=== PATIENT | male | born 1960 | race Caucasian/White ===

== ENCOUNTER 2019-03-02 19:24 | Inpatient (IN) | payer OTHER ==
[~2019-03-02] VITALS: Ht 182.9 cm; Wt 58.0 kg
[~2019-03-02 19:24] MED LIST: ALBU18HF INHALATION; ARIP5TAB14 PO; BICT1TAB PO; CEPH-443 PO; ESCI10TA48 PO; FER325 PO; FLUT16SP17 NASAL; LOPE2CAP PO; SULF1TAB31 PO; TAMS-14 PO
[2019-03-02 19:38] VITALS: Ht 182.9 cm; Wt 58.0 kg
[2019-03-02] MEDS ORDERED: CEFEPIME 2GM/50 ML (PMX) 50 ML IVPB STA (19:50)
[2019-03-02] MEDS ORDERED: SODIUM CHLORIDE 0.9% 1L BAG IV* STA (19:50)
[2019-03-02] MEDS ORDERED: FLUCONAZOLE 400 MG/NS (PMX) 200 ML IVPB ONE (20:00)
[2019-03-02] MEDS ORDERED: VANCOMYCIN 1 GM (PMX) 250 ML IVPB ONE (20:00)
[2019-03-02] MEDS ORDERED: KETOROLAC 15 MG INJ IV STA (20:31)
[2019-03-02] MEDS ORDERED: LORAZEPAM 2 MG INJ IV ONE (22:00)
[2019-03-02] MEDS ORDERED: VANCOMYCIN IV PER PHARMACY XX SCH (22:00)
[2019-03-02] MEDS ORDERED: NACL 0.9% 3 ML SYG IV SCH (22:00)
[2019-03-02] MEDS ORDERED: BISACODYL (EC) 5 MG TAB PO PRN (22:00)
[2019-03-02] MEDS ORDERED: ONDANSETRON 4 MG INJ IV PRN ×2 (22:00)
[2019-03-02] MEDS ORDERED: ACETAMINOPHEN 325 MG TAB PO PRN ×2 (22:00)
[2019-03-02] MEDS ORDERED: TRIMETHOPRIM/SULFAMETHOXAZOLE 10 ML in DEXTROSE 5% 250 ML IVPB ONE (22:00)
[2019-03-02] MEDS ORDERED: DOCUSATE SODIUM 100 MG CAP PO PRN (22:00)
[2019-03-02] MEDS ORDERED: morphine 2 MG INJ IV STA (22:27)
[2019-03-02] MEDS ORDERED: ALBUTEROL HFA 8 GM INHALER INH PRN (22:30)
[2019-03-02] MEDS ORDERED: LOPERAMIDE 2 MG CAP PO PRN (22:30)
[2019-03-02] MEDS ORDERED: morphine 4 MG/ML VIAL IV PRN (23:30)
[2019-03-03] VITALS: BP 134/79; PULSE 76; RESP 18
[2019-03-03] MEDS: PIPER-TAZO 3.375 GM IV (PMX) 100 ML IVPB SCH ×4 (01:50→18:24)
[2019-03-03 01:57] VITALS: BP 117/68; PULSE 76; RESP 18
[2019-03-03] MEDS: morphine 4 MG/ML VIAL IV PRN ×5 (07:06→18:32)
[2019-03-03 07:31] VITALS: BP 129/75; PULSE 75; RESP 20
[2019-03-03] MEDS: FLUTICASONE 0.05% 16 GM NAS SPRAY NASAL SCH (08:38)
[2019-03-03] MEDS: TRIMETHOPRIM/SULFAMETHOX (DS) TAB PO SCH (08:38)
[2019-03-03] MEDS: VANCOMYCIN 500 MG (PMX) 100 ML IVPB SCH ×2 (08:38→22:10)
[2019-03-03] MEDS: FERROUS SULFATE (EC) 325 MG TAB PO SCH ×2 (08:38→22:09)
[2019-03-03] MEDS: HEPARIN 5,000 UNIT/1 ML VIAL SC SCH ×2 (08:44→22:12)
[2019-03-03] MEDS ORDERED: [UNRECOGNIZED DRUG - OTHER] XX SCH (09:00)
[2019-03-03] MEDS ORDERED: ENOXAPARIN 40 MG/0.4 ML SYG SC SCH (09:00)
[2019-03-03] MEDS: LORAZEPAM 2 MG INJ IV PRN ×2 (13:27→19:51)
[2019-03-03 13:36] VITALS: BP 127/72; PULSE 82; RESP 18
[2019-03-03 19:43] VITALS: BP 110/58; PULSE 90; RESP 18
[2019-03-03] MEDS ORDERED: TAMSULOSIN (SR) 0.4 MG CAP PO SCH (21:00)
[2019-03-03] MEDS: TAMSULOSIN (SR) 0.4 MG CAP PO SCH (22:10)
[2019-03-04] MEDS: PIPER-TAZO 3.375 GM IV (PMX) 100 ML IVPB SCH ×2 (00:07→05:40)
[2019-03-04 01:23] VITALS: BP 129/76; PULSE 89; RESP 18
[2019-03-04] MEDS: morphine 4 MG/ML VIAL IV PRN ×6 (01:45→23:53)
[2019-03-04 08:01] VITALS: BP 91/57; PULSE 102; RESP 18
[2019-03-04] MEDS: FLUTICASONE 0.05% 16 GM NAS SPRAY NASAL SCH (09:14)
[2019-03-04] MEDS: TRIMETHOPRIM/SULFAMETHOX (DS) TAB PO SCH (09:15)
[2019-03-04] MEDS: FERROUS SULFATE (EC) 325 MG TAB PO SCH ×2 (09:15→20:27)
[2019-03-04] MEDS: HEPARIN 5,000 UNIT/1 ML VIAL SC SCH ×2 (09:23→20:30)
[2019-03-04] MEDS: LORAZEPAM 2 MG INJ IV PRN ×3 (09:24→20:32)
[2019-03-04] MEDS: CEFTRIAXONE 2 GM/50 ML (PMX) 50 ML IVPB SCH (11:21)
[2019-03-04] MEDS: DOXYCYCLINE 100 MG TAB PO SCH ×2 (11:21→20:27)
[2019-03-04 15:10] VITALS: BP 89/55; PULSE 103; RESP 16
[2019-03-04 20:00] VITALS: BP 103/58; PULSE 90; RESP 18
[2019-03-04] MEDS: TAMSULOSIN (SR) 0.4 MG CAP PO SCH (20:27)
[2019-03-04] MEDS: ESCITALOPRAM 10 MG TAB PO SCH (21:55)
[2019-03-04] MEDS: ARIPIPRAZOLE 5 MG TAB PO SCH (21:55)
[2019-03-04] MEDS: MIRTAZAPINE 15 MG TAB PO SCH (21:55)
[2019-03-04] MEDS: NICOTINE (21 MG/24 HR) PATCH TRANSDERM SCH (21:59)
[2019-03-05 02:00] VITALS: BP 140/79; PULSE 85; RESP 18
[2019-03-05 08:00] VITALS: BP 128/80; PULSE 81; RESP 24
[2019-03-05] MEDS: morphine 4 MG/ML VIAL IV PRN ×4 (08:10→23:59)
[2019-03-05] MEDS: DOXYCYCLINE 100 MG TAB PO SCH ×2 (08:13→20:22)
[2019-03-05] MEDS: ARIPIPRAZOLE 5 MG TAB PO SCH (08:13)
[2019-03-05] MEDS: ESCITALOPRAM 10 MG TAB PO SCH (08:13)
[2019-03-05] MEDS: TRIMETHOPRIM/SULFAMETHOX (DS) TAB PO SCH (08:13)
[2019-03-05] MEDS: FERROUS SULFATE (EC) 325 MG TAB PO SCH ×2 (08:13→20:22)
[2019-03-05] MEDS: NICOTINE (21 MG/24 HR) PATCH TRANSDERM SCH (08:14)
[2019-03-05] MEDS: HEPARIN 5,000 UNIT/1 ML VIAL SC SCH ×2 (08:16→20:23)
[2019-03-05] MEDS: CEFTRIAXONE 2 GM/50 ML (PMX) 50 ML IVPB SCH (10:17)
[2019-03-05] MEDS: FLUTICASONE 0.05% 16 GM NAS SPRAY NASAL SCH (10:17)
[2019-03-05] MEDS: LORAZEPAM 2 MG INJ IV PRN ×3 (10:24→20:22)
[2019-03-05 14:00] VITALS: BP 139/78; PULSE 79; RESP 24
[2019-03-05 20:02] VITALS: BP 124/83; PULSE 73; RESP 18
[2019-03-05] MEDS: MIRTAZAPINE 15 MG TAB PO SCH (20:22)
[2019-03-05] MEDS: TAMSULOSIN (SR) 0.4 MG CAP PO SCH (20:22)
[2019-03-06] VITALS (8 sets, daily range): BP systolic 85–134; BP diastolic 61–83; PULSE 76–100; RESP 16–18
[2019-03-06] MEDS: LORAZEPAM 2 MG INJ IV PRN ×2 (02:01→09:08)
[2019-03-06] MEDS: morphine 4 MG/ML VIAL IV PRN (07:21)
[2019-03-06] MEDS ORDERED: morphine LIQ (10 MG/5 ML) CUP PO PRN (08:00)
[2019-03-06] MEDS: ARIPIPRAZOLE 5 MG TAB PO SCH (08:58)
[2019-03-06] MEDS: ESCITALOPRAM 10 MG TAB PO SCH (08:58)
[2019-03-06] MEDS: DOXYCYCLINE 100 MG TAB PO SCH ×2 (08:58→21:09)
[2019-03-06] MEDS: FERROUS SULFATE (EC) 325 MG TAB PO SCH ×2 (08:58→21:09)
[2019-03-06] MEDS: TRIMETHOPRIM/SULFAMETHOX (DS) TAB PO SCH (08:58)
[2019-03-06] MEDS: NICOTINE (21 MG/24 HR) PATCH TRANSDERM SCH (08:59)
[2019-03-06] MEDS: CEFTRIAXONE 2 GM/50 ML (PMX) 50 ML IVPB SCH (08:59)
[2019-03-06] MEDS: FLUTICASONE 0.05% 16 GM NAS SPRAY NASAL SCH (08:59)
[2019-03-06] MEDS: HEPARIN 5,000 UNIT/1 ML VIAL SC SCH ×2 (09:02→21:11)
[2019-03-06] MEDS: METHADONE 1 MG/ML (ORAL SOLN) PO SCH (10:56)
[2019-03-06] MEDS: morphine LIQ (10 MG/5 ML) CUP PO PRN (10:57)
[2019-03-06] MEDS ORDERED: SOD CHLORIDE 0.9% 1,000 ML IV ONE (20:30)
[2019-03-06] MEDS: TAMSULOSIN (SR) 0.4 MG CAP PO SCH (21:09)
[2019-03-06] MEDS: MIRTAZAPINE 15 MG TAB PO SCH (21:09)
[2019-03-06] MEDS: AMOXICILLIN/CLAV 875 MG TAB PO SCH (21:09)
[2019-03-06] MEDS: SOD CHLORIDE 0.9% 1,000 ML IV SCH (21:28)
[2019-03-07] VITALS (7 sets, daily range): BP systolic 79–103; BP diastolic 54–66; PULSE 70–76; RESP 18–20
[2019-03-07] MEDS: METHADONE 1 MG/ML (ORAL SOLN) PO SCH (08:18)
[2019-03-07] MEDS: AMOXICILLIN/CLAV 875 MG TAB PO SCH ×2 (08:19→20:16)
[2019-03-07] MEDS: DOXYCYCLINE 100 MG TAB PO SCH ×2 (08:19→20:16)
[2019-03-07] MEDS: NICOTINE (21 MG/24 HR) PATCH TRANSDERM SCH (08:19)
[2019-03-07] MEDS: ARIPIPRAZOLE 5 MG TAB PO SCH (08:20)
[2019-03-07] MEDS: ESCITALOPRAM 10 MG TAB PO SCH (08:20)
[2019-03-07] MEDS: FERROUS SULFATE (EC) 325 MG TAB PO SCH ×2 (08:20→20:16)
[2019-03-07] MEDS: TRIMETHOPRIM/SULFAMETHOX (DS) TAB PO SCH (08:20)
[2019-03-07] MEDS: FLUTICASONE 0.05% 16 GM NAS SPRAY NASAL SCH (08:20)
[2019-03-07] MEDS: HEPARIN 5,000 UNIT/1 ML VIAL SC SCH ×2 (08:23→20:20)
[2019-03-07] MEDS: SOD CHLORIDE 0.9% 1,000 ML IV SCH ×2 (10:31→23:56)
[2019-03-07] MEDS ORDERED: ALBUMIN HUMAN 25% 100 ML IV ONE (12:00)
[2019-03-07] MEDS: MIRTAZAPINE 15 MG TAB PO SCH (20:16)
[2019-03-07] MEDS: morphine LIQ (10 MG/5 ML) CUP PO PRN (20:17)
[2019-03-07] MEDS: TAMSULOSIN (SR) 0.4 MG CAP PO SCH (20:21)
[2019-03-07] MEDS: LORAZEPAM 2 MG INJ IV PRN (20:36)
[2019-03-08 02:00] VITALS: BP 105/61; PULSE 85; RESP 18
[2019-03-08] MEDS: morphine LIQ (10 MG/5 ML) CUP PO PRN ×2 (06:36→20:53)
[2019-03-08] MEDS: LORAZEPAM 2 MG INJ IV PRN ×2 (06:44→23:12)
[2019-03-08 07:48] VITALS: BP 105/58; PULSE 72; RESP 20
[2019-03-08] MEDS: ESCITALOPRAM 10 MG TAB PO SCH (09:25)
[2019-03-08] MEDS: TRIMETHOPRIM/SULFAMETHOX (DS) TAB PO SCH (09:25)
[2019-03-08] MEDS: FLUTICASONE 0.05% 16 GM NAS SPRAY NASAL SCH (09:25)
[2019-03-08] MEDS: DOXYCYCLINE 100 MG TAB PO SCH ×2 (09:28→20:53)
[2019-03-08] MEDS: FERROUS SULFATE (EC) 325 MG TAB PO SCH ×2 (09:28→20:53)
[2019-03-08] MEDS: AMOXICILLIN/CLAV 875 MG TAB PO SCH ×2 (09:28→20:53)
[2019-03-08] MEDS: ARIPIPRAZOLE 5 MG TAB PO SCH (09:28)
[2019-03-08] MEDS: NICOTINE (21 MG/24 HR) PATCH TRANSDERM SCH (09:29)
[2019-03-08] MEDS: METHADONE 1 MG/ML (ORAL SOLN) PO SCH (09:29)
[2019-03-08] MEDS: HEPARIN 5,000 UNIT/1 ML VIAL SC SCH ×2 (09:30→21:01)
[2019-03-08] MEDS: SOD CHLORIDE 0.9% 1,000 ML IV SCH (13:32)
[2019-03-08 15:33] VITALS: BP 96/61; PULSE 78; RESP 19
[2019-03-08 20:00] VITALS: BP 106/59; PULSE 75; RESP 17
[2019-03-08] MEDS: MIRTAZAPINE 15 MG TAB PO SCH (20:53)
[2019-03-08] MEDS: TAMSULOSIN (SR) 0.4 MG CAP PO SCH (20:53)
[2019-03-09 02:07] VITALS: BP 98/57; PULSE 79; RESP 18
[2019-03-09] MEDS: SOD CHLORIDE 0.9% 1,000 ML IV SCH ×4 (03:10→20:30)
[2019-03-09 08:16] VITALS: BP 106/58; PULSE 77; RESP 18
[2019-03-09] MEDS: AMOXICILLIN/CLAV 875 MG TAB PO SCH ×2 (08:44→20:14)
[2019-03-09] MEDS: TRIMETHOPRIM/SULFAMETHOX (DS) TAB PO SCH (08:44)
[2019-03-09] MEDS: ARIPIPRAZOLE 5 MG TAB PO SCH (08:44)
[2019-03-09] MEDS: ESCITALOPRAM 10 MG TAB PO SCH (08:44)
[2019-03-09] MEDS: DOXYCYCLINE 100 MG TAB PO SCH ×2 (08:44→20:14)
[2019-03-09] MEDS: NICOTINE (21 MG/24 HR) PATCH TRANSDERM SCH (08:44)
[2019-03-09] MEDS: FERROUS SULFATE (EC) 325 MG TAB PO SCH ×2 (08:44→20:13)
[2019-03-09] MEDS: FLUTICASONE 0.05% 16 GM NAS SPRAY NASAL SCH (08:45)
[2019-03-09] MEDS: METHADONE 1 MG/ML (ORAL SOLN) PO SCH (08:45)
[2019-03-09] MEDS: HEPARIN 5,000 UNIT/1 ML VIAL SC SCH ×2 (08:47→20:15)
[2019-03-09 13:56] VITALS: BP 101/61; PULSE 73; RESP 20
[2019-03-09] MEDS: LORAZEPAM 2 MG INJ IV PRN (16:00)
[2019-03-09 19:39] VITALS: BP 104/59; PULSE 75; RESP 18
[2019-03-09] MEDS: TAMSULOSIN (SR) 0.4 MG CAP PO SCH (20:13)
[2019-03-09] MEDS: MIRTAZAPINE 15 MG TAB PO SCH (20:13)
[2019-03-09] MEDS: morphine LIQ (10 MG/5 ML) CUP PO PRN (20:21)
[2019-03-10] MEDS: SOD CHLORIDE 0.9% 1,000 ML IV SCH ×3 (00:49→21:30)
[2019-03-10 01:21] VITALS: BP 109/65; PULSE 77; RESP 18
[2019-03-10 07:57] VITALS: BP 108/61; PULSE 72; RESP 18
[2019-03-10] MEDS: ARIPIPRAZOLE 5 MG TAB PO SCH (08:54)
[2019-03-10] MEDS: DOXYCYCLINE 100 MG TAB PO SCH ×2 (08:54→20:07)
[2019-03-10] MEDS: ESCITALOPRAM 10 MG TAB PO SCH (08:54)
[2019-03-10] MEDS: AMOXICILLIN/CLAV 875 MG TAB PO SCH ×2 (08:54→20:07)
[2019-03-10] MEDS: FERROUS SULFATE (EC) 325 MG TAB PO SCH ×2 (08:54→20:07)
[2019-03-10] MEDS: TRIMETHOPRIM/SULFAMETHOX (DS) TAB PO SCH (08:55)
[2019-03-10] MEDS: NICOTINE (21 MG/24 HR) PATCH TRANSDERM SCH (08:55)
[2019-03-10] MEDS: METHADONE 1 MG/ML (ORAL SOLN) PO SCH (08:56)
[2019-03-10] MEDS: HEPARIN 5,000 UNIT/1 ML VIAL SC SCH ×2 (08:59→20:08)
[2019-03-10] MEDS: FLUTICASONE 0.05% 16 GM NAS SPRAY NASAL SCH (09:01)
[2019-03-10 13:42] VITALS: BP 101/51; PULSE 73; RESP 18
[2019-03-10] MEDS: morphine LIQ (10 MG/5 ML) CUP PO PRN ×2 (14:09→23:09)
[2019-03-10 20:00] VITALS: BP 93/55; PULSE 74; RESP 18
[2019-03-10] MEDS: TAMSULOSIN (SR) 0.4 MG CAP PO SCH (20:06)
[2019-03-10] MEDS: MIRTAZAPINE 15 MG TAB PO SCH (20:07)
[2019-03-11 02:00] VITALS: BP 97/54; PULSE 74; RESP 18
[2019-03-11] MEDS: LORAZEPAM 2 MG INJ IV PRN ×2 (02:52→17:18)
[2019-03-11 03:00] VITALS: BP 101/55; PULSE 72; RESP 18
[2019-03-11] MEDS: SOD CHLORIDE 0.9% 1,000 ML IV SCH ×2 (05:05→22:57)
[2019-03-11 08:25] VITALS: BP 115/61; PULSE 79; RESP 18
[2019-03-11] MEDS: NICOTINE (21 MG/24 HR) PATCH TRANSDERM SCH (08:48)
[2019-03-11] MEDS: TRIMETHOPRIM/SULFAMETHOX (DS) TAB PO SCH (08:48)
[2019-03-11] MEDS: DOXYCYCLINE 100 MG TAB PO SCH ×2 (08:48→20:43)
[2019-03-11] MEDS: METHADONE 1 MG/ML (ORAL SOLN) PO SCH (08:48)
[2019-03-11] MEDS: ARIPIPRAZOLE 5 MG TAB PO SCH (08:48)
[2019-03-11] MEDS: FERROUS SULFATE (EC) 325 MG TAB PO SCH ×2 (08:48→20:43)
[2019-03-11] MEDS: AMOXICILLIN/CLAV 875 MG TAB PO SCH ×2 (08:48→20:43)
[2019-03-11] MEDS: ESCITALOPRAM 10 MG TAB PO SCH (08:48)
[2019-03-11] MEDS: HEPARIN 5,000 UNIT/1 ML VIAL SC SCH ×2 (08:49→20:54)
[2019-03-11] MEDS: FLUTICASONE 0.05% 16 GM NAS SPRAY NASAL SCH (08:54)
[2019-03-11] MEDS: morphine LIQ (10 MG/5 ML) CUP PO PRN ×2 (11:06→20:50)
[2019-03-11 14:15] VITALS: BP 95/54; PULSE 80; RESP 18
[2019-03-11 19:42] VITALS: BP 98/57; PULSE 89; RESP 18
[2019-03-11] MEDS: MIRTAZAPINE 15 MG TAB PO SCH (20:43)
[2019-03-11] MEDS: TAMSULOSIN (SR) 0.4 MG CAP PO SCH (20:44)
[2019-03-12] MEDS: LORAZEPAM 2 MG INJ IV PRN ×2 (01:16→12:24)
[2019-03-12 01:48] VITALS: BP 100/58; PULSE 87; RESP 17
[2019-03-12 07:50] VITALS: BP 109/65; PULSE 77; RESP 18
[2019-03-12] MEDS: ESCITALOPRAM 10 MG TAB PO SCH (08:52)
[2019-03-12] MEDS: NICOTINE (21 MG/24 HR) PATCH TRANSDERM SCH (08:52)
[2019-03-12] MEDS: ARIPIPRAZOLE 5 MG TAB PO SCH (08:52)
[2019-03-12] MEDS: AMOXICILLIN/CLAV 875 MG TAB PO SCH ×2 (08:52→20:39)
[2019-03-12] MEDS: METHADONE 1 MG/ML (ORAL SOLN) PO SCH (08:52)
[2019-03-12] MEDS: FERROUS SULFATE (EC) 325 MG TAB PO SCH ×2 (08:52→20:39)
[2019-03-12] MEDS: TRIMETHOPRIM/SULFAMETHOX (DS) TAB PO SCH (08:52)
[2019-03-12] MEDS: FLUTICASONE 0.05% 16 GM NAS SPRAY NASAL SCH (08:52)
[2019-03-12] MEDS: DOXYCYCLINE 100 MG TAB PO SCH ×2 (08:52→20:39)
[2019-03-12] MEDS: HEPARIN 5,000 UNIT/1 ML VIAL SC SCH ×2 (08:55→20:40)
[2019-03-12] MEDS: SOD CHLORIDE 0.9% 1,000 ML IV SCH (11:28)
[2019-03-12 14:41] VITALS: BP 92/54; PULSE 77; RESP 18
[2019-03-12] MEDS: TAMSULOSIN (SR) 0.4 MG CAP PO SCH (20:39)
[2019-03-13 02:31] VITALS: BP 100/55; PULSE 75; RESP 17
[2019-03-13 07:30] VITALS: BP 97/51; PULSE 64; RESP 18
[2019-03-13] MEDS: DOXYCYCLINE 100 MG TAB PO SCH ×2 (09:04→21:20)
[2019-03-13] MEDS: TRIMETHOPRIM/SULFAMETHOX (DS) TAB PO SCH (09:04)
[2019-03-13] MEDS: ESCITALOPRAM 10 MG TAB PO SCH (09:04)
[2019-03-13] MEDS: FERROUS SULFATE (EC) 325 MG TAB PO SCH ×2 (09:04→21:20)
[2019-03-13] MEDS: AMOXICILLIN/CLAV 875 MG TAB PO SCH ×2 (09:05→21:20)
[2019-03-13] MEDS: ARIPIPRAZOLE 5 MG TAB PO SCH (09:05)
[2019-03-13] MEDS: FLUTICASONE 0.05% 16 GM NAS SPRAY NASAL SCH (09:05)
[2019-03-13] MEDS: HEPARIN 5,000 UNIT/1 ML VIAL SC SCH ×2 (09:10→21:21)
[2019-03-13] MEDS: NICOTINE (14 MG/24 HR) PATCH TRANSDERM SCH (10:26)
[2019-03-13 14:00] VITALS: BP 90/58; PULSE 70; RESP 18
[2019-03-13] MEDS ORDERED: METHADONE 10 MG TAB PO ONE (14:30)
[2019-03-13] MEDS: METHADONE 1 MG/ML (ORAL SOLN) PO SCH (14:47)
[2019-03-13 19:50] VITALS: BP 90/55; PULSE 65; RESP 18
[2019-03-13] MEDS: TAMSULOSIN (SR) 0.4 MG CAP PO SCH (21:20)
[2019-03-14 01:44] VITALS: BP 96/58; PULSE 70; RESP 18
[2019-03-14 07:39] VITALS: PULSE 66; RESP 17
[2019-03-14 08:20] VITALS: BP 83/44; PULSE 71; RESP 18
[2019-03-14] MEDS: ESCITALOPRAM 10 MG TAB PO SCH (09:29)
[2019-03-14] MEDS: DOXYCYCLINE 100 MG TAB PO SCH ×2 (09:29→20:43)
[2019-03-14] MEDS: ARIPIPRAZOLE 5 MG TAB PO SCH (09:29)
[2019-03-14] MEDS: TRIMETHOPRIM/SULFAMETHOX (DS) TAB PO SCH (09:29)
[2019-03-14] MEDS: AMOXICILLIN/CLAV 875 MG TAB PO SCH ×2 (09:29→20:43)
[2019-03-14] MEDS: FERROUS SULFATE (EC) 325 MG TAB PO SCH ×2 (09:30→20:43)
[2019-03-14] MEDS: NICOTINE (14 MG/24 HR) PATCH TRANSDERM SCH (09:31)
[2019-03-14] MEDS: HEPARIN 5,000 UNIT/1 ML VIAL SC SCH ×2 (09:36→20:43)
[2019-03-14] MEDS: FLUTICASONE 0.05% 16 GM NAS SPRAY NASAL SCH (09:47)
[2019-03-14] MEDS ORDERED: NA POLYST SULFON 15 GM/60 ML BTL PO ONE (10:30)
[2019-03-14] MEDS: METHADONE 1 MG/ML (ORAL SOLN) PO SCH (10:57)
[2019-03-14] MEDS ORDERED: SOD CHLORIDE 0.9% 500 ML IV ONE (11:00)
[2019-03-14 20:00] VITALS: BP 101/52; PULSE 80; RESP 18
[2019-03-14] MEDS: TAMSULOSIN (SR) 0.4 MG CAP PO SCH (20:43)
[2019-03-15 02:00] VITALS: BP 95/40; PULSE 71; RESP 18
[2019-03-15 07:37] VITALS: BP 117/58; PULSE 76; RESP 18
[2019-03-15 07:38] VITALS: BP 122/61; PULSE 85; RESP 18
[2019-03-15] MEDS: ESCITALOPRAM 10 MG TAB PO SCH (09:12)
[2019-03-15] MEDS: FERROUS SULFATE (EC) 325 MG TAB PO SCH ×2 (09:12→20:04)
[2019-03-15] MEDS: METHADONE 1 MG/ML (ORAL SOLN) PO SCH (09:12)
[2019-03-15] MEDS: AMOXICILLIN/CLAV 875 MG TAB PO SCH ×2 (09:12→20:04)
[2019-03-15] MEDS: NICOTINE (14 MG/24 HR) PATCH TRANSDERM SCH (09:13)
[2019-03-15] MEDS: DOXYCYCLINE 100 MG TAB PO SCH ×2 (09:13→20:04)
[2019-03-15] MEDS: ARIPIPRAZOLE 5 MG TAB PO SCH (09:13)
[2019-03-15] MEDS: HEPARIN 5,000 UNIT/1 ML VIAL SC SCH ×2 (09:20→20:05)
[2019-03-15] MEDS: TRIMETHOPRIM/SULFAMETHOX (DS) TAB PO SCH (09:26)
[2019-03-15] MEDS: FLUTICASONE 0.05% 16 GM NAS SPRAY NASAL SCH (09:28)
[2019-03-15 14:55] VITALS: BP 88/54; PULSE 70; RESP 20
[2019-03-15 19:54] VITALS: BP 94/52; PULSE 69; RESP 20
[2019-03-15] MEDS: TAMSULOSIN (SR) 0.4 MG CAP PO SCH (20:06)
[2019-03-16 01:38] VITALS: BP 100/57; PULSE 61; RESP 20
[2019-03-16 07:22] VITALS: BP 110/59; PULSE 80; RESP 16
[2019-03-16] MEDS: DOXYCYCLINE 100 MG TAB PO SCH (08:28)
[2019-03-16] MEDS: METHADONE 1 MG/ML (ORAL SOLN) PO SCH (08:28)
[2019-03-16] MEDS: AMOXICILLIN/CLAV 875 MG TAB PO SCH (08:28)
[2019-03-16] MEDS: ESCITALOPRAM 10 MG TAB PO SCH (08:28)
[2019-03-16] MEDS: FERROUS SULFATE (EC) 325 MG TAB PO SCH ×2 (08:29→20:48)
[2019-03-16] MEDS: ARIPIPRAZOLE 5 MG TAB PO SCH (08:29)
[2019-03-16] MEDS: TRIMETHOPRIM/SULFAMETHOX (DS) TAB PO SCH (08:29)
[2019-03-16] MEDS: NICOTINE (14 MG/24 HR) PATCH TRANSDERM SCH (08:29)
[2019-03-16] MEDS: HEPARIN 5,000 UNIT/1 ML VIAL SC SCH ×2 (08:30→20:50)
[2019-03-16] MEDS: FLUTICASONE 0.05% 16 GM NAS SPRAY NASAL SCH (08:31)
[2019-03-16 15:09] VITALS: BP 108/58; PULSE 86; RESP 16
[2019-03-16 20:00] VITALS: BP 124/67; PULSE 62; RESP 17
[2019-03-16] MEDS: TAMSULOSIN (SR) 0.4 MG CAP PO SCH (20:47)
[2019-03-17 02:00] VITALS: BP 101/51; PULSE 86; RESP 18
[2019-03-17 07:59] VITALS: BP 86/50; PULSE 66; RESP 16
[2019-03-17 08:15] VITALS: BP 100/52
[2019-03-17] MEDS: METHADONE 1 MG/ML (ORAL SOLN) PO SCH (08:15)
[2019-03-17] MEDS: FERROUS SULFATE (EC) 325 MG TAB PO SCH (08:16)
[2019-03-17] MEDS: NICOTINE (14 MG/24 HR) PATCH TRANSDERM SCH (08:16)
[2019-03-17] MEDS: ARIPIPRAZOLE 5 MG TAB PO SCH (08:16)
[2019-03-17] MEDS: ESCITALOPRAM 10 MG TAB PO SCH (08:16)
[2019-03-17] MEDS: TRIMETHOPRIM/SULFAMETHOX (DS) TAB PO SCH (08:16)
[2019-03-17] MEDS: HEPARIN 5,000 UNIT/1 ML VIAL SC SCH (08:19)
[2019-03-17] MEDS: FLUTICASONE 0.05% 16 GM NAS SPRAY NASAL SCH (09:00)
== END 2019-03-17 11:20 | disposition home or self-care (01) | DRG 975 ==
LOC: E/R 19:24 → 2NE 21:42 → MS3 23:45
PROVIDERS: ADMIT Family Medicine; ATTEND Family Medicine
DX: A41.9 Sepsis, unspecified organism (principal); B20 Human immunodeficiency virus [HIV] disease; R64 Cachexia; J18.9 Pneumonia, unspecified organism; Z68.1 Body mass index [BMI] 19.9 or less, adult; E87.1 Hypo-osmolality and hyponatremia; R45.851 Suicidal ideations; B19.20 Unspecified viral hepatitis C without hepatic coma; F17.200 Nicotine dependence, unspecified, uncomplicated; K62.3 Rectal prolapse; N40.0 Benign prostatic hyperplasia without lower urinary tract symptoms; D64.9 Anemia, unspecified; F15.10 Other stimulant abuse, uncomplicated; I10 Essential (primary) hypertension; F39 Unspecified mood [affective] disorder; F32.9 Major depressive disorder, single episode, unspecified; Z59.0 Homelessness; R73.03 Prediabetes; Z66 Do not resuscitate
CPT/HCPCS: 36415; 36600; 71045; 80048; 80053; 80202; 82728; 82803; 83036; 83540; 83605; 83615; 83735; 84100; 84132; 84145; 84443; 84484; 85025; 85610; 85730; 86360; 86480; 86580; 87081; 87275; 87276; 87279; 87280; 87536; 93005; 96365; 96375; 97110; 97116; 97162; 97530; J0692; J0696; J1450; J1644; J1885; J2060; J2270; J2405; J2543; J3370; J7030; J7040; J7070; P9047